=== PATIENT | female | born 1970 | race Caucasian/White ===

== ENCOUNTER 2021-12-07 19:40 | Emergency (ER) | payer MEDICAID, SELFPAY ==
--- NOTE | 2021-12-07 19:52 | ED.GENADULT ---
HPI - General Adult General Chief complaint: Unspecified Complaint, Adult <Kimberley Sainz, DO - Last Filed: 12/07/21 21:11> Stated complaint: Right ear/head ache <Kimberley Sainz DO - Last Filed: 12/07/21 21:11> Time Seen by Provider: 12/07/21 19:45 <Kimberley Sainz DO - Last Filed: 12/07/21 21:11> History of Present Illness HPI narrative: Noa is a 51-year-old female patient presents emergency department with complaints of right ear, face, and head pain present for approximately 3 days. Patient reports that she has associated blurry vision in the right eye. She reports prior to onset of symptoms, she developed water in her ear and believes this may have led to her discomfort. She was seen by a traditional healer, and was advised that the water may be the cause of her concern. She denies nausea, vomiting, or diarrhea. She denies numbness, tingling, or weakness. She has had no gait changes or instability. She has had no trauma or injury. She has had no fever, chills, or sweats. She has no h/o migraines or recurrent HAs. See nursing notes for details. <Kimberley Sainz, DO - Last Filed: 12/07/21 21:11> Related Data Home medications: Home Medications Medication Instructions Recorded Confirmed bupropion HCl 150 mg 24 hr tablet, mg PO 12/07/21 extended release <Kimberley Sainz DO - Last Filed: 12/07/21 21:11> Allergies/adverse reactions: Allergies Allergy/AdvReac Type Severity Reaction Status Date / Time No Known Allergies Allergy Unknown Verified 11/12/21 14:25 pravastatin AdvReac Verified 12/07/21 19:55 <Kimberley Sainz DO - Last Filed: 12/07/21 21:11> Review of Systems Const: Reports: fatigue and malaise; Denies: fever or chills <Kimberley Sainz DO - Last Filed: 12/07/21 21:11> Eyes: Reports: change in vision, blurry vision and light sensitivity; Denies: eye discomfort <Kimberley Sainz DO - Last Filed: 12/07/21 21:11> ENMT: Denies: throat pain, ear pain, vertigo, nasal discharge or nasal congestion <Kimberley Samsland, DO - Last Filed: 12/07/21 21:11> Cardio: Denies: chest pain, palpitations, shortness of breath with exertion or shortness of breath when lying down <[facility] - Last Filed: 12/07/21 21:11> Resp: Denies: shortness of breath or cough <Kimberley Samsland, DO - Last Filed: 12/07/21 21:11> GI: Denies: abdominal pain, nausea, vomiting, diarrhea or constipation <Kimberley Samsland, DO - Last Filed: 12/07/21 21:11> Integ/Breast: Denies: rash <Kimberley Samsland, DO - Last Filed: 12/07/21 21:11> Neuro: Reports: headache; Denies: numbness in extremities, weakness in extremities, lack of coordination, dizziness, vertigo, confusion, behavioral changes, slurred speech or difficulty communicating thoughts <Kimberley Samsland, DO - Last Filed: 12/07/21 21:11> Endo: Reports: fatigue <Kimberley Samsland, DO - Last Filed: 12/07/21 21:11> Allergy/Immuno: Reports: other (Recent treatment for rash on left hand with steroid therapy.) <Kimberley Samsland, DO - Last Filed: 12/07/21 21:11> PFSH [facility] Surgical History: Surgical History (Updated 11/12/21 @ 14:26 by Mary Kate Moncada) History of section History of cholecystectomy <Kimberley Samsland DO - Last Filed: 12/07/21 21:11> Social History: Social History Smoking Status: Never smoker How often do you have a drink containing alcohol: never AUDIT-C Alcohol total score: 0 Non-prescribed substance use: denies use <Kimberley Samsland DO - Last Filed: 12/07/21 21:11> Exam Const: Vital Signs, click to edit/add: Vital Signs - 24 hr 12/07/21 19:55 12/07/21 21:32 Temperature 97.9 F Pulse Rate [Left P ulse Oximeter] 104 H 89 Respiratory Rate 16 16 Blood Pressure [Le ft Upper Arm] 136/110 H 123/79 Pulse Oximetry 99 98 Oxygen Delivery Me thod Room Air Room Air <Kimberley Sainz, DO - Last Filed: 12/07/21 21:11> Vital Signs, click to edit/add: Vital Signs - 24 hr 12/07/21 19:55 12/07/21 21:32 Temperature 97.9 F Pulse Rate [Left P ulse Oximeter] 104 H 89 Respiratory Rate 16 16 Blood Pressure [Le ft Upper Arm] 136/110 H 123/79 Pulse Oximetry 99 98 Oxygen Delivery Me thod Room Air Room Air <Kar Trujillo MD - Last Filed: 12/07/21 22:00> Documenting provider has reviewed patient's vital signs: yes <Kimberley Sainz DO - Last Filed: 12/07/21 21:11> Common normals: no apparent distress, oriented x3, no limitations and alert <Kimberley Sainz, DO - Last Filed: 12/07/21 21:11> General appearance: cooperative, well kempt and in distress mild; not comfortable and not ill appearing <Kimberley Sainz, DO - Last Filed: 12/07/21 21:11> Nutritional appearance: obese <Kimberley Sainz, DO - Last Filed: 12/07/21 21:11> Orientation/consciousness: Yes awake, Yes oriented to person, Yes oriented to place and Yes oriented to time <Kimberley Sainz, DO - Last Filed: 12/07/21 21:11> HENMT: Common normals: normocephalic, head/scalp atraumatic, hearing grossly normal bilaterally, external ears normal and TM's normal bilaterally (with mild air fluid level on right without bulge, erythema, or retraction) <Kimberley Sainz, DO - Last Filed: 12/07/21 21:11> Head and scalp: normal to inspection, normocephalic and atraumatic <Kimberley Sainz DO - Last Filed: 12/07/21 21:11> Face and sinus: normal facial exam (limited by masking) <Kimberley Samsland, DO - Last Filed: 12/07/21 21:11> External ear: external ears normal <[facility] Mayco SkinnerAlistair, DO - Last Filed: 12/07/21 21:11> Tympanic membrane: TM's normal bilaterally (with mild air fluid level on right without bulge, erythema, or retraction) <[facility] Mayco SkinnerAlistair, DO - Last Filed: 12/07/21 21:11> Eye: Common normals: PERRL and EOMs intact bilaterally <[facility] [place], DO - Last Filed: 12/07/21 21:11> General eye: normal appearance of both eyes <[facility] DO - Last Filed: 12/07/21 21:11> Pupil: PERRL <[facility] Mayco SkinnerAlistair, DO - Last Filed: 12/07/21 21:11> Direct Ophthalmoscopy: photophobia <[facility] [place], DO - Last Filed: 12/07/21 21:11> Neck & C-Spine: Common normals: full ROM, no lymphadenopathy and supple <[facility] Mayco [place], DO - Last Filed: 12/07/21 21:11> Resp: Common normals: normal respiratory effort, no retractions, no use of accessory muscles and clear to auscultation bilaterally <Kimberley D [place], DO - Last Filed: 12/07/21 21:11> Effort & inspection: able to speak in complete sentences <Kimberleyemlanie Skinner[place], DO - Last Filed: 12/07/21 21:11> Auscultation: clear to auscultation bilaterally; no crackles, no rales, no rhonchi and no wheezes <[facility] DO - Last Filed: 12/07/21 21:11> Cardio: Common normals: regular rate, regular rhythm, S1 normal heart sound, S2 normal heart sound, no gallops, no clicks and no murmurs <[facility] Mayco [place], DO - Last Filed: 12/07/21 21:11> Rate: regular rate <[facility] DO - Last Filed: 12/07/21 21:11> Rhythm: regular rhythm <Kimberley Samsland - Last Filed: 12/07/21 21:11> Heart sounds: S1 normal and S2 normal <Kimberley Samsland, DO - Last Filed: 12/07/21 21:11> GI: Common normals: Normal to inspection, nondistended, normoactive bowel sounds present, soft to palpation and non-tender <[facility] - Last Filed: 12/07/21 21:11> Palpation: soft <Kimberley D [place]ist[place], DO - Last Filed: 12/07/21 21:11> Extremity: Common normals: normal to inspection, full ROM and no clubbing, cyanosis or edema <Kimberleymelanie Samsland, DO - Last Filed: 12/07/21 21:11> Neuro: Willington Coma Scale: document GCS findings Dwayne coma scale eye opening: Spontaneous (4) Dwayne coma scale verbal response: Orientated (5) Dwayne coma scale motor response: Obey commands (6) Dwayne coma scale total score: 15 <Kimberley Samsland - Last Filed: 12/07/21 21:11> Dwayne Coma Scale: document GCS findings Dwayne coma scale total score: 15 <Kar Trujillo MD - Last Filed: 12/07/21 22:00> Common normals: oriented x3, CN's II-XII intact bilaterally, moves all extremities, no focal motor deficits and no sensory deficits noted <Kimberleyannamaria Samsland - Last Filed: 12/07/21 21:11> Sensorium/orientation: awake, alert, oriented to person, oriented to place and oriented to time <Kimberley aSmsland, - Last Filed: 12/07/21 21:11> Speech: speech normal <Kimberley Samsland DO - Last Filed: 12/07/21 21:11> Gait (neuro): normal gait <Kimberley Samsland - Last Filed: 12/07/21 21:11> Sensory exam: double simultaneous stimulation for sensation normal <Kimberley Samsland - Last Filed: 12/07/21 21:11> Motor exam: strength 5/5 throughout, no pronator drift, muscle tone normal throughout and no movement abnormalities noted <Kimberley Sainz DO - Last Filed: 12/07/21 21:11> Psych: Common normals: mental status grossly normal, thought process normal and activity/motor behavior normal <Kimberley Sainz DO - Last Filed: 12/07/21 21:11> Appearance: well kempt <Kimbreley Sainz DO - Last Filed: 12/07/21 21:11> Attitude: calm <Kimberley Sainz DO - Last Filed: 12/07/21 21:11> Thought process: normal thought process <Kimberley Sainz DO - Last Filed: 12/07/21 21:11> Thought content: normal thought content <Kimberley Sainz DO - Last Filed: 12/07/21 21:11> Attention/concentration: attention grossly intact <Kimberley Sainz DO - Last Filed: 12/07/21 21:11> Memory/cognition: memory grossly intact <Kimberley Sainz DO - Last Filed: 12/07/21 21:11> Insight: insight good <Kimberley Sainz DO - Last Filed: 12/07/21 21:11> Judgement: judgment good <Kimberley Sainz DO - Last Filed: 12/07/21 21:11> Skin: Rashes: rashes noted 1st rash finding Rash type: plaque (erythematous, raised rash on left hand/wrist) Rash color: erythematous Rash border: raised and irregular <Kimberley Sainz DO - Last Filed: 12/07/21 21:11> Course Course Hospital Course: Noa presented to the ED for evaluation and treatment of LARA present for 3 days with ear pain. She was evaluated with labs and imaging. She received IV fluids and magnesium to assist with the LARA, and should affect the blood pressure. She will be transferred at shift change to the night physician for additional evaluation, treatment, and disposition. She is in stable condition at time of shift change. <Kimberley Sainz - Last Filed: 12/07/21 21:11> Reevaluation(s) Reevaluation #1: Patient accepted in sign-out from prior provider. Presents with right-sided headache and right ear pain. Labs so far reassuring with normal WBC, reassuring BMP, slight elevation in ALT. Head CT negative for acute findings. Add Toradol for pain and plan to discharge. COVID test is negative. <Kar Trujillo MD - Last Filed: 12/07/21 22:00> Time: 21:28 <Kar Trujillo MD - Last Filed: 12/07/21 22:00> Vital Signs Vital signs: Initial Vital Signs Temperature 97.9 F 12/07/21 19:55 Temperature Source Temporal Artery Scan 12/07/21 19:55 Pulse Rate 104 H 12/07/21 19:55 Respiratory Rate 16 12/07/21 19:55 Blood Pressure 136/110 H 12/07/21 19:55 Blood Pressure Mean 118 12/07/21 19:55 Pulse Oximetry 99 12/07/21 19:55 Oxygen Delivery Method 12/07/21 19:55 Vital Signs Temperature 97.9 F 12/07/21 19:55 Pulse Rate 104 H 12/07/21 19:55 Respiratory Rate 16 12/07/21 19:55 Blood Pressure 136/110 H 12/07/21 19:55 Pulse Oximetry 99 12/07/21 19:55 Oxygen Delivery Method 12/07/21 19:55 Temperature 97.9 F 12/07/21 19:55 Pulse Rate 89 12/07/21 21:32 Respiratory Rate 16 12/07/21 21:32 Blood Pressure 123/79 12/07/21 21:32 Pulse Oximetry 98 12/07/21 21:32 Oxygen Delivery Method 12/07/21 21:32 <Kimberley Sainz DO - Last Filed: 12/07/21 21:11> Initial Vital Signs Temperature 97.9 F 12/07/21 19:55 Temperature Source Temporal Artery Scan 12/07/21 19:55 Pulse Rate 104 H 12/07/21 19:55 Respiratory Rate 16 12/07/21 19:55 Blood Pressure 136/110 H 12/07/21 19:55 Blood Pressure Mean 118 12/07/21 19:55 Pulse Oximetry 99 12/07/21 19:55 Oxygen Delivery Method 12/07/21 19:55 Vital Signs Temperature 97.9 F 12/07/21 19:55 Pulse Rate 104 H 12/07/21 19:55 Respiratory Rate 16 12/07/21 19:55 Blood Pressure 136/110 H 12/07/21 19:55 Pulse Oximetry 99 12/07/21 19:55 Oxygen Delivery Method 12/07/21 19:55 Temperature 97.9 F 12/07/21 19:55 Pulse Rate 89 12/07/21 21:32 Respiratory Rate 16 12/07/21 21:32 Blood Pressure 123/79 12/07/21 21:32 Pulse Oximetry 98 12/07/21 21:32 Oxygen Delivery Method 12/07/21 21:32 <Kar Trujillo MD - Last Filed: 12/07/21 22:00> Medical Decision Making MDM Narrative Medical decision making narrative: Life-threatening differential diagnoses include: SAH, meningitis, encephalitis, carbon monoxide poisoning, and intracerebral hemorrhage. Other differential diagnoses include, but are not limited to: migraine, cluster headache, tension headache, [employer]COH[employer] WORKER vasculitis, mass lesion, temporal arteritis, acute closed angle glaucoma, occipital or trigeminal neuralgia, and sinusitis. <Kimberley Sainz DO - Last Filed: 12/07/21 21:11> Medical Records Medical records reviewed: Yes I reviewed the patient's medical records <Kar Trujillo MD - Last Filed: 12/07/21 22:00> Lab Data Lab results reviewed: Yes I reviewed the patient's lab results <Kar Trujillo MD - Last Filed: 12/07/21 22:00> Labs: Lab Results 12/07/21 12/07/21 12/07/21 Range/Units 20:32 20:35 20:35 WBC 6.38 (4.50-11.00) K/uL RBC 5.00 (4.00-5.20) m/uL Hgb 13.7 (12.0-16.0) gm/dL Hct 42.1 (33.0-51.0) % MCV 84 (80-100) fL MCH 27 (26-34) pg MCHC 33 (32-36) gm/dL RDW Coeff of Grazyna 14.1 (11.5-15.5) % Plt Count 185 (140-440) K/uL Neut % (Auto) 49.1 (42.0-72.0) % Lymph % (Auto) 24.8 (20-44) % Donley % (Auto) 12.4 H (0.0-11.0) % Eos % (Auto) 12.7 H (0.0-7.0) % Baso % (Auto) 0.8 (0.0-3.0) % Neut # (Auto) 3.14 (1.7-7.0) K/uL Lymph # (Auto) 1.58 (0.90-2.90) K/uL Donley # (Auto) 0.80 (0.00-0.90) K/UL Eos # (Auto) 0.80 H (0.00-0.50) K/uL Baso # (Auto) 0.05 (0.00-0.30) K/uL Abs Immat Gran (auto) 0.01 (0.00-0.30) K/uL ESR 29 H (2-20) mm/hr Sodium (135-149) mmol/L Potassium (3.6-5.1) mmol/L Chloride (96-114) mmol/L Carbon Dioxide (20-32) mmol/L BUN (7-30) mg/dL Creatinine (0.5-1.5) mg/dL Estimated Creat Clear Estimated GFR ml/min Glucose (60-115) mg/dL Calcium (8.4-10.6) mg/dL Magnesium (1.5-2.6) mg/dL Total Bilirubin (0.1-1.5) mg/dL AST (12-35) U/L ALT (4-35) U/L Alkaline Phosphatase (40-150) U/L Total Protein (6.0-8.3) g/dL Albumin (3.3-5.0) g/dL SARS-CoV-2 (PCR) Negative SARS-CoV-2 (Negative) 12/07/21 Range/Units 20:35 WBC (4.50-11.00) K/uL RBC (4.00-5.20) m/uL Hgb (12.0-16.0) gm/dL Hct (33.0-51.0) % MCV (80-100) fL MCH (26-34) pg MCHC (32-36) gm/dL RDW Coeff of Grazyna (11.5-15.5) % Plt Count (140-440) K/uL Neut % (Auto) (42.0-72.0) % Lymph % (Auto) (20-44) % Donley % (Auto) (0.0-11.0) % Eos % (Auto) (0.0-7.0) % Baso % (Auto) (0.0-3.0) % Neut # (Auto) (1.7-7.0) K/uL Lymph # (Auto) (0.90-2.90) K/uL Donley # (Auto) (0.00-0.90) K/UL Eos # (Auto) (0.00-0.50) K/uL Baso # (Auto) (0.00-0.30) K/uL Abs Immat Gran (auto) (0.00-0.30) K/uL ESR (2-20) mm/hr Sodium 139 (135-149) mmol/L Potassium 4.8 (3.6-5.1) mmol/L Chloride 103 (96-114) mmol/L Carbon Dioxide 26 (20-32) mmol/L BUN 17 (7-30) mg/dL Creatinine 0.8 (0.5-1.5) mg/dL Estimated Creat Clear 59.09 Estimated GFR 89 ml/min Glucose 101 (60-115) mg/dL Calcium 8.9 (8.4-10.6) mg/dL Magnesium 2.1 (1.5-2.6) mg/dL Total Bilirubin 0.6 (0.1-1.5) mg/dL AST 38 H (12-35) U/L ALT 29 (4-35) U/L Alkaline Phosphatase 134 (40-150) U/L Total Protein 8.4 H (6.0-8.3) g/dL Albumin 4.6 (3.3-5.0) g/dL SARS-CoV-2 (PCR) (Negative) <Kimberley Sainz DO - Last Filed: 12/07/21 21:11> Lab Results 12/07/21 12/07/21 12/07/21 Range/Units 20:32 20:35 20:35 WBC 6.38 (4.50-11.00) K/uL RBC 5.00 (4.00-5.20) m/uL Hgb 13.7 (12.0-16.0) gm/dL Hct 42.1 (33.0-51.0) % MCV 84 (80-100) fL MCH 27 (26-34) pg MCHC 33 (32-36) gm/dL RDW Coeff of Grazyna 14.1 (11.5-15.5) % Plt Count 185 (140-440) K/uL Neut % (Auto) 49.1 (42.0-72.0) % Lymph % (Auto) 24.8 (20-44) % Donley % (Auto) 12.4 H (0.0-11.0) % Eos % (Auto) 12.7 H (0.0-7.0) % Baso % (Auto) 0.8 (0.0-3.0) % Neut # (Auto) 3.14 (1.7-7.0) K/uL Lymph # (Auto) 1.58 (0.90-2.90) K/uL Donley # (Auto) 0.80 (0.00-0.90) K/UL Eos # (Auto) 0.80 H (0.00-0.50) K/uL Baso # (Auto) 0.05 (0.00-0.30) K/uL Abs Immat Gran (auto) 0.01 (0.00-0.30) K/uL ESR 29 H (2-20) mm/hr Sodium (135-149) mmol/L Potassium (3.6-5.1) mmol/L Chloride (96-114) mmol/L Carbon Dioxide (20-32) mmol/L BUN (7-30) mg/dL Creatinine (0.5-1.5) mg/dL Estimated Creat Clear Estimated GFR ml/min Glucose (60-115) mg/dL Calcium (8.4-10.6) mg/dL Magnesium (1.5-2.6) mg/dL Total Bilirubin (0.1-1.5) mg/dL AST (12-35) U/L ALT (4-35) U/L Alkaline Phosphatase (40-150) U/L Total Protein (6.0-8.3) g/dL Albumin (3.3-5.0) g/dL SARS-CoV-2 (PCR) Negative SARS-CoV-2 (Negative) 12/07/21 Range/Units 20:35 WBC (4.50-11.00) K/uL RBC (4.00-5.20) m/uL Hgb (12.0-16.0) gm/dL Hct (33.0-51.0) % MCV (80-100) fL MCH (26-34) pg MCHC (32-36) gm/dL RDW Coeff of Grazyna (11.5-15.5) % Plt Count (140-440) K/uL Neut % (Auto) (42.0-72.0) % Lymph % (Auto) (20-44) % Donley % (Auto) (0.0-11.0) % Eos % (Auto) (0.0-7.0) % Baso % (Auto) (0.0-3.0) % Neut # (Auto) (1.7-7.0) K/uL Lymph # (Auto) (0.90-2.90) K/uL Donley # (Auto) (0.00-0.90) K/UL Eos # (Auto) (0.00-0.50) K/uL Baso # (Auto) (0.00-0.30) K/uL Abs Immat Gran (auto) (0.00-0.30) K/uL ESR (2-20) mm/hr Sodium 139 (135-149) mmol/L Potassium 4.8 (3.6-5.1) mmol/L Chloride 103 (96-114) mmol/L Carbon Dioxide 26 (20-32) mmol/L BUN 17 (7-30) mg/dL Creatinine 0.8 (0.5-1.5) mg/dL Estimated Creat Clear 59.09 Estimated GFR 89 ml/min Glucose 101 (60-115) mg/dL Calcium 8.9 (8.4-10.6) mg/dL Magnesium 2.1 (1.5-2.6) mg/dL Total Bilirubin 0.6 (0.1-1.5) mg/dL AST 38 H (12-35) U/L ALT 29 (4-35) U/L Alkaline Phosphatase 134 (40-150) U/L Total Protein 8.4 H (6.0-8.3) g/dL Albumin 4.6 (3.3-5.0) g/dL SARS-CoV-2 (PCR) (Negative) <Kar Trujillo MD - Last Filed: 12/07/21 22:00> Imaging Data CT scan - head: Attestation: I have reviewed the pertinent imaging results. <Kar Trujillo MD - Last Filed: 12/07/21 22:00> Radiologist's impression: No acute findings, ?chronic sinusitis <Kar Trujillo MD - Last Filed: 12/07/21 22:00> Discharge Plan Discharge Clinical Impression: Elevated BP without diagnosis of hypertension, Headache <Kimebrley Sainz DO - Last Filed: 12/07/21 21:11> Patient Disposition: Home, Self-Care <Kimberley Sainz DO - Last Filed: 12/07/21 21:11> Condition: Improved <Kimberley Sainz DO - Last Filed: 12/07/21 21:11> Instructions: Acute Headache (DC) <Kimberley Sainz DO - Last Filed: 12/07/21 21:11> Activity Level: No Restrictions <Kimberley Sainz DO - Last Filed: 12/07/21 21:11> No Restrictions <Kar Trujillo MD - Last Filed: 12/07/21 22:00> Discharge Diet: Regular <Kimberley Sainz DO - Last Filed: 12/07/21 21:11> Regular <Kar Trujillo MD - Last Filed: 12/07/21 22:00> Prescriptions: No Action bupropion HCl 150 mg tablet extended release 24 hr PO <Kimberley Sainz DO - Last Filed: 12/07/21 21:11> Follow Up/Referrals: Generic,Amb Provider [Staff Physician] - <Kimberley Sainz DO - Last Filed: 12/07/21 21:11> Stand Alone Forms: MyHealth Info Instructions <Kimberley Sainz DO - Last Filed: 12/07/21 21:11>
[2021-12-07 19:55] VITALS: BP 136/110; PULSE 104; RESP 16; TEMP 36.6; O2SAT 99; BMI 39.1
--- NOTE | 2021-12-07 20:02 | CRLHL7_ITS ---
For Patients: As a result of the Century Cures Act, medical imaging exams and procedure reports are released immediately into your electronic medical record. You may view this report before your referring provider. If you have questions, please contact your health care provider. DATE: 12/07/2021. CLINICAL HISTORY: New right-sided weakness. TECHNIQUE: Standard helical CT image acquisition of the brain was performed. COMPARISON: None available. FINDINGS: There is no intracranial hemorrhage. No extra-axial collection, mass effect, or midline shift. Lovell-white matter differentiation is preserved. Patchy areas of hypoattenuation within the white matter of both hemispheres, nonspecific. The ventricles are normal in size and morphology for patient age. The calvarium is unremarkable. The orbits are unremarkable. Complete opacification the right sphenoid sinus, with internal areas of curvilinear calcifications/mineralization suggestive of chronic sinusitis, possibly fungal in etiology. The mastoid air cells are unremarkable. The soft tissues are unremarkable. IMPRESSION: 1. No CT evidence of acute intracranial abnormality. 2. Patchy hypoattenuation within the white matter of both hemispheres. This is nonspecific but may reflect sequela of chronic small vessel ischemia. 3. Complete opacification of the right sphenoid sinus with internal curvilinear calcifications/mineralization. This is suggestive of chronic sinusitis, possibly fungal in etiology. Please note that all CT scans at this facility use dose modulation, iterative reconstruction, and/or weight-based dosing when appropriate to reduce radiation dose to as low as reasonably achievable. Dictated by Patrick Candelario MD @ 12/07/2021 9:25:30 PM (Electronically Signed)
--- NOTE | 2021-12-07 20:03 | ED.NURSE ---
triage and MD assessment - acid recovery operator via ipad used.
[2021-12-07 20:52] LABS: Basophils Absolute Auto 0.05 K/uL (0.00-0.30); Basophils Percent Auto 0.8 % (0.0-3.0); Eosinophils Percent Auto 12.7 % (0.0-7.0); Hematocrit 42.1 % (33.0-51.0); Hemoglobin* 13.7 gm/dL (12.0-16.0); Immature Granulocytes Abs Auto 0.01 K/uL (0.00-0.30); Lymphocytes Absolute Auto 1.58 K/uL (0.90-2.90); Lymphocytes Percent Auto 24.8 % (20-44); Mean Corpuscular HGB Conc 33 gm/dL (32-36); Mean Corpuscular Hemoglobin 27 pg (26-34); Mean Corpuscular Volume 84 fL (80-100); Monocytes Percent Auto 12.4 % (0.0-11.0); Neutrophils Absolute Auto 3.14 K/uL (1.7-7.0); Neutrophils Percent Auto 49.1 % (42.0-72.0); Platelet Count* 185 K/uL (140-440); RDW Coefficient of Variation % 14.1 % (11.5-15.5); White Blood Count* 6.38 K/uL (4.50-11.00)
[2021-12-07] MEDS: 0.9 % SODIUM CHLORIDE 1000 ml 1,000 ML IV (20:56)
[2021-12-07 21:04] LABS: Slide Review Reflex No
[2021-12-07] MEDS: MAGNESIUM SULFATE 2 GM/50 ML PIGGYBACK IVPB (21:04)
[2021-12-07 21:10] LABS: Albumin* 4.6 g/dL (3.3-5.0); Chloride* 103 mmol/L (96-114); Potassium* 4.8 mmol/L (3.6-5.1); Sodium* 139 mmol/L (135-149)
[2021-12-07 21:12] LABS: Creatinine* 0.8 mg/dL (0.5-1.5); Est. Creatinine Clearance* 59.09; Estimated Glomerular Filt Rate 89 ml/min
[2021-12-07 21:13] LABS: Alanine Aminotransferase* 29 U/L (4-35); Alkaline Phosphatase* 134 U/L (40-150); Aspartate Amino Transferase* 38 U/L (12-35); Bilirubin Total* 0.6 mg/dL (0.1-1.5); Blood Urea Nitrogen* 17 mg/dL (7-30); Calcium* 8.9 mg/dL (8.4-10.6); Carbon Dioxide* 26 mmol/L (20-32); Glucose* 101 mg/dL (60-115); Magnesium* 2.1 mg/dL (1.5-2.6); Total Protein* 8.4 g/dL (6.0-8.3)
[2021-12-07 21:32] VITALS: BP 123/79; PULSE 89; RESP 16; O2SAT 98
[2021-12-07] MEDS: KETOROLAC 15 MG/ML inj IVP (21:37)
--- NOTE | 2021-12-07 21:42 | ED.NURSE ---
[facility] has no beds for him tonight, but call back tomorrow after 1100. they have the information, so no need to fax additional reports to [facility].
[2021-12-07 21:47] LABS: Erythrocyte SedimentationRate* 29 mm/hr (2-20)
[2021-12-07 21:47] LABS: SARS PCR* Negative SARS-CoV-2 (Negative)
[2021-12-07] MEDS: dexAMETHasone 4 MG/ML VIAL 10 MG IV (22:05)
--- NOTE | 2021-12-07 22:22 | ED.NURSE ---
bending shed worker used for discharge and education, pt did request to use family member on phone for some interpretation.
== END 2021-12-07 22:21 | disposition home or self-care (01) ==
PROVIDERS: Family Medicine; Emergency Provider Family Medicine
DX: R51.9 Headache, unspecified (principal); R03.0 Elevated blood-pressure reading, without diagnosis of hypertension
CPT/HCPCS: 36415; 70450; 80053; 83735; 85025; 85651; 87635; 96365; 96375; 99284; J1100; J1885; J3475; J7030

== ENCOUNTER 2021-12-31 09:50 | Emergency (ER) | payer MEDICAID, SELFPAY ==
[2021-12-31 09:55] VITALS: BP 101/70; PULSE 73; RESP 16; TEMP 36.6; O2SAT 97; BMI 39.1
--- NOTE | 2021-12-31 11:14 | ED.GENADULT ---
HPI - General Adult General Chief complaint: Unspecified Complaint, Adult Stated complaint: Fungus on scalp affecting eye Time Seen by Provider: 12/31/21 10:48 History of Present Illness HPI narrative: This 51-year-old female comes in with her friend who will assist by their request for interpreting from Bulgarian. The patient herself does understand some Norwegian also. She was seen a couple weeks ago and had a CT scan of her head because of pain in and around her right eye. There was no intracranial abnormality except that her sphenoid sinus was opacified with fluid suggesting sinusitis. There was a comment by the radiologist that this could be a fungal infection. The patient was prescribed a steroid course which brought temporary improvement. She also has a follow-up appointment with [facility] in a couple weeks. She returns because her pain soon worsened after finishing a course of steroid medication. Related Data Home Medications Medication Instructions Recorded Confirmed bupropion HCl 150 mg 24 hr tablet, mg PO 12/07/21 extended release omeprazole 20 mg capsule,delayed mg 12/31/21 release Previous Rx's Medication Instructions Recorded amoxicillin 875 mg-potassium 1 tab PO BID #10 tabs 12/31/21 clavulanate 125 mg tablet methylprednisolone 4 mg tablets in See Rx Instructions PO .COMPLEX 12/31/21 a dose pack (Medrol (Jas)) #21 ea Allergies Allergy/AdvReac Type Severity Reaction Status Date / Time No Known Allergies Allergy Unknown Verified 11/12/21 14:25 pravastatin AdvReac Verified 12/07/21 19:55 Review of Systems Status of ROS: Reports: 10 or more systems reviewed and unremarkable except as noted in History and below Narrative: Constitutional: No fevers, no weight gain or loss. Eyes: No discharge. No vision changes. HENT: No congestion, no sore throat, no ear pain. She reports pain and swelling around her right eye. Cardiovascular: No chest pain, no palpitations. Respiratory: No shortness of breath, no wheezes, no cough. Gastrointestinal: No abdominal pain, no vomiting, no diarrhea. Genitourinary: No dysuria, no hematuria. Musculoskeletal: Normal range of motion. Skin: No rashes, no pruritis. Neurological: No dizziness, weakness, sensory change, speech change. Endo/Heme/Allergies: No bruising or bleeding. No polydipsia. Pysch: no suicidality, no anxiety, no insomnia. All other systems reviewed and are negative. [facility] Medical History (Updated 12/31/21 @ 11:19 by Nayan Reddy MD) GERD (gastroesophageal reflux disease) Surgical History (Updated 11/12/21 @ 14:26 by Mary Kate Moncada) History of section History of cholecystectomy Social History Smoking Status: Never smoker How often do you have a drink containing alcohol: never AUDIT-C Alcohol total score: 0 Non-prescribed substance use: denies use Exam Narrative: Exam Narrative: Constitutional: Well-developed, well-nourished, no acute distress. HEENT: Normocephalic, atraumatic. The right eye and surrounding structures do not appear to have any swelling compared to the left side. There is no sign of conjunctivitis. The patient has diffuse tenderness in the right temporal region and around the right eye. Neck: Normal range of motion. Nontender. Supple. Heart: Regular. No murmurs. Normal rate. Intact distal pulses. Lungs: Clear to auscultation. No chest discomfort. No wheezes, rhonchi, or rales. Abdomen: Normal bowel sounds. Nontender. No rebound tenderness. Genitalia: Deferred. Back: No midline tenderness. Normal range of motion. Extremities: Normal range of motion. No injury. Skin: Intact. No rash. Warm. No erythema or pallor. Neurologic: No altered sensation. No weakness. Alert and oriented. Psychiatric: No suicidality. No anxiety or depression. No insomnia. Nursing notes and vitals signs are reviewed. Const: Vital Signs, click to edit/add: Vital Signs - 24 hr 12/31/21 09:55 Temperature 97.9 F Pulse Rate [Pulse Oximeter] 73 Respiratory Rate 16 Blood Pressure [Ri ght Upper Arm] 101/70 Pulse Oximetry 97 Oxygen Delivery Me thod Room Air Course Vital Signs Vital signs: Initial Vital Signs Temperature 97.9 F 12/31/21 09:55 Temperature Source Temporal Artery Scan 12/31/21 09:55 Pulse Rate 73 12/31/21 09:55 Respiratory Rate 16 12/31/21 09:55 Blood Pressure 101/70 12/31/21 09:55 Blood Pressure Mean 80 12/31/21 09:55 Blood Pressure Position Supine 12/31/21 09:55 Pulse Oximetry 97 12/31/21 09:55 Oxygen Delivery Method 12/31/21 09:55 Vital Signs Temperature 97.9 F 12/31/21 09:55 Pulse Rate 73 12/31/21 09:55 Respiratory Rate 16 12/31/21 09:55 Blood Pressure 101/70 12/31/21 09:55 Pulse Oximetry 97 12/31/21 09:55 Oxygen Delivery Method 12/31/21 09:55 Temperature 97.9 F 12/31/21 09:55 Pulse Rate 73 12/31/21 09:55 Respiratory Rate 16 12/31/21 09:55 Blood Pressure 101/70 12/31/21 09:55 Pulse Oximetry 97 12/31/21 09:55 Oxygen Delivery Method 12/31/21 09:55 Medical Decision Making MDM Narrative Medical decision making narrative: This patient comes in seeking further evaluation and additional treatment regarding the symptoms as stated above. I did review the previous notes from her visit to clinic and her CT results. Her sphenoid sinus is completely opacified with fluid. There was a common from the radiologist that this could be a fungal infection. The patient did benefit from a short course of a steroid. She does have a follow-up with [facility] in a couple weeks. It seems best to maintain this appointment to get fluid from the sinus if possible in order to analyze if in fact there is a fungal infection. It seems more likely that this would be a bacterial sinusitis or a viral sinusitis. I did prescribe another course of steroid with a Medrol Dosepak and a prescription for Augmentin. She is encouraged to use [id number] medicines also as needed and directed. Discharge Plan Discharge Clinical Impression: Sinusitis, acute, sphenoidal Patient Disposition: Home, Self-Care Condition: Unchanged Instructions: Sinusitis (ED) Additional Instructions: Take medications as prescribed. Use [id number] medicines as needed and directed also. Follow-up with appointment as scheduled. Prescriptions: New methylprednisolone [Medrol (Jas)] 4 mg tablets,dose pack See Rx Instructions .ROUTE .COMPLEX Qty: 21 0RF Rx Instructions: orally per package directions amoxicillin-pot clavulanate 875-125 mg tablet 1 tab PO BID Qty: 10 0RF No Action bupropion HCl 150 mg tablet extended release 24 hr PO omeprazole 20 mg capsule,delayed release(DR/EC) Follow Up/Referrals: Provider,Not a Local [Primary Care Provider] - Stand Alone Forms: [employer] Info Instructions
--- NOTE | 2021-12-31 11:34 | ED.NURSE ---
Given discharge instructions. Refused an associate dean of women. signed form.
== END 2021-12-31 11:37 | disposition home or self-care (01) ==
LOC: ED 11:24
PROVIDERS: Emergency Provider Emergency Medicine Emergency Medical Services
DX: J01.31 Acute recurrent sphenoidal sinusitis (principal)
CPT/HCPCS: 99282; 99283; 99284

== ENCOUNTER 2022-06-24 18:18 | Emergency (ER) | payer MEDICAID, SELFPAY ==
[2022-06-24 18:26] VITALS: BP 139/91; PULSE 88; RESP 18; TEMP 36.4; O2SAT 95; BMI 39.1
--- NOTE | 2022-06-24 19:02 | ED_ITS ---
HPI - General Adult General Chief complaint: Extremity Pain/Injury, Upper Stated complaint: Rt arm pain Time Seen by Provider: 06/24/22 18:43 History of Present Illness HPI narrative: This 51-year-old female comes in reporting right shoulder and upper arm pain. This is been present for the past couple months. She does not describe any particular injury event but states that she has persistent pain in her right shoulder with associated decreased range of motion. She states that she does have an appointment for therapy and down in [place]. She had seen a doctor regarding this but did not receive any medication to help her. She states that she has had an injection in her left shoulder. Related Data Home Medications Medication Instructions Recorded Confirmed bupropion HCl 150 mg 24 hr tablet, mg PO 12/07/21 extended release omeprazole 20 mg capsule,delayed 20 mg 12/31/21 release ibuprofen 200 mg tablet 600 mg PO Q8H 06/24/22 06/24/22 Previous Rx's Medication Instructions Recorded cyclobenzaprine 10 mg tablet 10 mg PO TID #15 tabs 06/24/22 hydrocodone 5 mg-acetaminophen 325 1 tab PO Q4-6H PRN pain #15 tabs 06/24/22 mg tablet Allergies Allergy/AdvReac Type Severity Reaction Status Date / Time pravastatin AdvReac Verified 12/07/21 19:55 Review of Systems Status of ROS: Reports: 10 or more systems reviewed and unremarkable except as noted in History and below Narrative: Constitutional: No fevers, no weight gain or loss. Eyes: No discharge. No vision changes. HENT: No congestion, no sore throat, no ear pain. Cardiovascular: No chest pain, no palpitations. Respiratory: No shortness of breath, no wheezes, no cough. Gastrointestinal: No abdominal pain, no vomiting, no diarrhea. Genitourinary: No dysuria, no hematuria. Musculoskeletal: Right shoulder and upper arm pain with associated decreased range of motion. Skin: No rashes, no pruritis. Neurological: No dizziness, weakness, sensory change, speech change. Endo/Heme/Allergies: No bruising or bleeding. No polydipsia. Pysch: no suicidality, no anxiety, no insomnia. All other systems reviewed and are negative. [facility] Medical History (Updated 06/24/22 @ 19:06 by Nayan Reddy MD) GERD (gastroesophageal reflux disease) Surgical History (Updated 11/12/21 @ 14:26 by Mary Kate Moncada) History of section History of cholecystectomy Social History Smoking Status: Never smoker How often do you have a drink containing alcohol: never AUDIT-C Alcohol total score: 0 Non-prescribed substance use: denies use Exam Narrative: Exam Narrative: Constitutional: Well-developed, well-nourished, no acute distress. HEENT: Normocephalic, atraumatic. Neck: Normal range of motion. Nontender. Supple. Heart: Regular. No murmurs. Normal rate. Intact distal pulses. Lungs: Clear to auscultation. No chest discomfort. No wheezes, rhonchi, or rales. Abdomen: Normal bowel sounds. Nontender. No rebound tenderness. Genitalia: Deferred. Back: No midline tenderness. Normal range of motion. Extremities: Diffuse pain in the right shoulder and upper arm without any sign of deformity or swelling. She has difficulty putting her hand behind her back. Empty can sign is also positive. She has pain with external rotation of her right shoulder. Skin: Intact. No rash. Warm. No erythema or pallor. Neurologic: No altered sensation. No weakness. Alert and oriented. Psychiatric: No suicidality. No anxiety or depression. No insomnia. Nursing notes and vitals signs are reviewed. Const: Vital Signs, click to edit/add: Vital Signs - 24 hr 06/24/22 18:26 Temperature 97.6 F Pulse Rate [Right Pulse Oximeter] 88 Respiratory Rate 18 Blood Pressure [Ri ght Upper Arm] 139/91 H Pulse Oximetry 95 Oxygen Delivery Me thod Room Air Course Vital Signs Vital signs: Initial Vital Signs Temperature 97.6 F 06/24/22 18:26 Temperature Source Temporal Artery Scan 06/24/22 18:26 Pulse Rate 88 06/24/22 18:26 Respiratory Rate 18 06/24/22 18:26 Blood Pressure 139/91 H 06/24/22 18:26 Blood Pressure Mean 107 06/24/22 18:26 Blood Pressure Position Sitting 06/24/22 18:26 Pulse Oximetry 95 06/24/22 18:26 Oxygen Delivery Method 06/24/22 18:26 Vital Signs Temperature 97.6 F 06/24/22 18:26 Pulse Rate 88 06/24/22 18:26 Respiratory Rate 18 02/28/23 18:26 Blood Pressure 139/91 H 06/24/22 18:26 Pulse Oximetry 95 06/24/22 18:26 Oxygen Delivery Method 06/24/22 18:26 Temperature 97.6 F 06/24/22 18:26 Pulse Rate 88 06/24/22 18:26 Respiratory Rate 18 06/24/22 18:26 Blood Pressure 139/91 H 06/24/22 18:26 Pulse Oximetry 95 06/24/22 18:26 Oxygen Delivery Method 06/24/22 18:26 Medical Decision Making MDM Narrative Medical decision making narrative: This patient comes in with right shoulder pain and states that is is keeping her awake at night. She has decreased range of motion characteristic of impingement syndrome. She did not have any specific injury event that indicate need for x- ray imaging at this time. I did offer a therapeutic injection in the right david ulder joint but she declined this. She does have a follow-up appointment arranged for physical therapy. I did agree to give her prescription for Flexeril and some tablets of [place]. She understands that this is is a 1 time prescription from the emergency department and ongoing management will need to come from her primary physician. Discharge Plan Discharge Clinical Impression: Right shoulder pain Patient Disposition: Home, Self-Care Condition: Stable Additional Instructions: Take medication as needed and indicated. Follow up with MD and physical therapy as scheduled. Return if worsening. Prescriptions: New cyclobenzaprine 10 mg tablet 10 mg PO TID Qty: 15 0RF hydrocodone-acetaminophen 5-325 mg tablet 1 tab PO Q4-6H PRN (Reason: pain) Qty: 15 0RF No Action bupropion HCl 150 mg tablet extended release 24 hr PO omeprazole 20 mg capsule,delayed release(DR/EC) 20 mg ibuprofen 200 mg tablet 600 mg PO Q8H Follow Up/Referrals: Provider,Not a Local [Primary Care Provider] - Stand Alone Forms: [email or web address] Info Instructions
== END 2022-06-24 19:27 | disposition home or self-care (01) ==
PROVIDERS: Emergency Provider Emergency Medicine Emergency Medical Services
DX: M25.511 Pain in right shoulder (principal)
CPT/HCPCS: 99283; 99284

== ENCOUNTER 2022-08-29 09:40 | Emergency (ER) | payer MEDICAID, SELFPAY ==
[2022-08-29 09:48] VITALS: BP 122/78; PULSE 72; RESP 18; TEMP 36.3; O2SAT 95; BMI 39.1
--- NOTE | 2022-08-29 10:43 | ED_ITS ---
HPI - General Adult General Chief complaint: Extremity Pain/Injury, Upper Stated complaint: R arm pain Time Seen by Provider: 08/29/22 09:47 History of Present Illness HPI narrative: 52-year-old woman presenting to the emergency department with complaint of right shoulder pain. She receives care from a Dr. Cárdenas in [place] whom she reports seeing 2 weeks ago where x-rays of her shoulder were done. She reports these x-rays were unremarkable She has been having pain in his right shoulder since March of this last year. She is right-hand dominant. Does not work outside of the home. 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 Pain is particularly bad at night, hard to find a comfortable position. There was no specific injury. Apparently has had injection in the left shoulder in the past in [place]. Otherwise no fever or particular joint swelling or redness. She reports the pain initially began in the mid humerus and seems to be more present in the shoulder. Sometimes has pain radiating down the arm. Not associated with neck movement. Any movement really of the shoulder right now is exacerbating her pain. Ibuprofen has not been helpful. Unclear diagnosis in this right shoulder but was referred to physical therapy. Her ride that she was to get was canceled. She can reschedule physical therapy but it does not sound as though that has been done yet. Related Data Home Medications Medication Instructions Recorded Confirmed bupropion HCl 150 mg 24 hr tablet, mg PO 12/07/21 08/08/22 extended release omeprazole 20 mg capsule,delayed 20 mg 12/31/21 08/08/22 release ibuprofen 200 mg tablet 600 mg PO Q8H 06/24/22 08/08/22 Previous Rx's Medication Instructions Recorded celecoxib 200 mg capsule (Celebrex) 200 mg PO BID PRN pain #30 caps 08/29/22 hydrocodone 5 mg-acetaminophen 325 1 - 2 tab PO Q6H PRN pain #12 tabs 08/29/22 mg tablet Allergies Allergy/AdvReac Type Severity Reaction Status Date / Time pravastatin AdvReac Verified 08/08/22 11:08 Review of Systems Status of ROS: Reports: 6 or more systems reviewed and unremarkable except as noted in History and below [facility] Medical History History of HPV infection ?Z86.19 - Personal history of other infectious and parasitic diseases (ICD- 10) GERD (gastroesophageal reflux disease) ?K21.9 - Gastro-esophageal reflux disease without esophagitis (ICD-10) Surgical History History of cholecystectomy ?Z90.49 - Acquired absence of other specified parts of digestive tract (ICD- 10) History of section ?Z98.891 - History of uterine scar from previous surgery (ICD-10) Social History Smoking Status: Never smoker How often do you have a drink containing alcohol: never AUDIT-C Alcohol total score: 0 Non-prescribed substance use: denies use service: No Exam Narrative: Exam Narrative: Pleasant. NAD. Seated in the bed. Any movement really the right shoulder seems to cause pain. She has good pulses peripherally. Neck is supple and does not seem to exacerbate her pain though she is tense in the right trapezial musculature. Pain is reproducible to palpation in the anterior lateral deltoid. She seems sore along the distal clavicle. Not discretely in the AC joint. She is tender in the subacromial space is well. Is weak I think due to pain in resisted internal and external rotation. Difficult to accomplish more elevated testing of her shoulder so inconclusive empty can and Neer's testing. She cannot abduct the shoulder without assistance and even then tries to involve the trapezius. Const: Vital Signs, click to edit/add: Vital Signs - 24 hr 08/29/22 09:48 Temperature 97.3 F L Pulse Rate [Pulse Oximeter] 72 Respiratory Rate 18 Blood Pressure [Ri ght Forearm] 122/78 Pulse Oximetry 95 Oxygen Delivery Me thod Room Air Documenting provider has reviewed patient's vital signs: yes Course Vital Signs Vital signs: Initial Vital Signs Temperature 97.3 F L 08/29/22 09:48 Temperature Source Temporal Artery Scan 08/29/22 09:48 Pulse Rate 72 08/29/22 09:48 Pulse Rhythm Regular 08/29/22 09:48 Respiratory Rate 18 08/29/22 09:48 Blood Pressure 122/78 08/29/22 09:48 Blood Pressure Mean 92 08/29/22 09:48 Blood Pressure Position Supine 08/29/22 09:48 Pulse Oximetry 95 08/29/22 09:48 Oxygen Delivery Method Room Air 08/29/22 09:48 Vital Signs Temperature 97.3 F L 08/29/22 09:48 Pulse Rate 72 08/29/22 09:48 Respiratory Rate 18 08/29/22 09:48 Blood Pressure 122/78 08/29/22 09:48 Pulse Oximetry 95 08/29/22 09:48 Oxygen Delivery Method Room Air 08/29/22 09:48 Temperature 97.3 F L 08/29/22 09:48 Pulse Rate 72 08/29/22 09:48 Respiratory Rate 18 08/29/22 09:48 Blood Pressure 122/78 08/29/22 09:48 Pulse Oximetry 95 08/29/22 09:48 Oxygen Delivery Method Room Air 08/29/22 09:48 Medical Decision Making MDM Narrative Medical decision making narrative: Given the activities that were described historically I wonder if this is more of a subacromial bursitis. I can not adequately evaluate the rotator cuff today. I did propose initially arm sling anti-inflammatories possibly steroid. She would like an injection though if possible. She is anticipating a trip I believed to [place]. I would note that she was offered an injection when evaluated here in May and had declined/deferred. Risks and benefits of shoulder/subacromial bursal injection or discussed. She would like to proceed. After cleansing with Betadine injected subacromial bursa with approximate 20 mg of Kenalog and 1% lidocaine. Tolerated procedure quite well. Was already noting some improvement prior to departure. Dispensed arm sling. Discharge Plan Discharge Clinical Impression: Right shoulder pain, Subacromial bursitis Patient Disposition: Home w/ Parent or Adult Condition: Improved Additional Instructions: Wear the arm sling for comfort over the next few days, maybe a week. Otherwise can rest your shoulder with this when it starts to act up. Can try Celebrex for pain. Though if it calms down from this injection, ibuprofen or acetaminophen might again be helpful. Otherwise [place] if can not diminish the pain at night for example. See handout for recommendations and exercises that you can start doing regularly going forward. I would consider this for both shoulders. Follow-up for re-evaluation if your shoulder has not improved in 2 weeks. Use el cabestrillo del brazo para mayor comodidad moni los pr?ximos d?as, allyssa vez favio semana. De lo contrario puede descansar snyder hombro con esto cuando comienza a actuar. Puede probar Celebrex para el dolor. Aunque si se calma con esta inyecci?n, el ibuprofeno o el paracetamol podr?an ser ?tiles nuevamente. De lo contrario, [place] si no puede disminuir el dolor por la noche, por ejemplo. Consulte el folleto para obtener recomendaciones y ejercicios que puede comenzar a hacer regularmente en el futuro. Considerar?a esto para ambos hombros. Seguimiento para favio reevaluaci?n si snyder hombro no burk ruby en 2 semanas. Prescriptions: New hydrocodone-acetaminophen 5-325 mg tablet 1 - 2 tab PO Q6H PRN (Reason: pain) Qty: 12 0RF celecoxib [Celebrex] 200 mg capsule 200 mg PO BID PRN (Reason: pain) Qty: 30 0RF No Action bupropion HCl 150 mg tablet extended release 24 hr PO omeprazole 20 mg capsule,delayed release(DR/EC) 20 mg ibuprofen 200 mg tablet 600 mg PO Q8H Follow Up/Referrals: Provider,Not a Local [Primary Care Provider] - Stand Alone Forms: [employer] Info Instructions
[2022-08-29] MEDS: LIDOCAINE 1% 5 ml (pf) 5 ML VIAL INJECTION (11:07)
[2022-08-29] MEDS: TRIAMCINOLONE 40 MG/ML INJ 20 MG INTRA-ARTI (11:07)
== END 2022-08-29 11:54 | disposition home or self-care (01) ==
PROVIDERS: Emergency Provider Family Medicine
DX: M75.51 Bursitis of right shoulder (principal)
CPT/HCPCS: 20610; 99283; 99284; J3301

== ENCOUNTER 2023-11-25 14:21 | Outpatient (CLI) | payer MEDICAID, SELFPAY ==
[2023-11-25 19:53] LABS: Chlamydia DNA Amplified* NOT DETECTED (No Detected); GC DNA Amplified* NOT DETECTED (No Detected)
== END 2023-11-25 14:22 | disposition home or self-care (01) ==
PROVIDERS: Visit Provider Registered Nurse
DX: N89.8 Other specified noninflammatory disorders of vagina (principal)
CPT/HCPCS: 87491; 87591